=== PATIENT | male | born 1960 | race Asian ===

== ENCOUNTER → 2024-07-11 | Outpatient (CLI) | payer BC, MEDICARE, MEDICAID, SELFPAY ==
[2024-07-11 08:36] LABS: Basophils # (Auto) 0.1 Thou/mm3 (0.0-0.2); Basophils % (Auto) 0 % (0-2.5); Eosinophils # (Auto) 0.4 Thou/mm3 (0.0-0.5); Eosinophils % (Auto) 2 % (0-10); Hematocrit 28.8 % (41.0-53.0); Hemoglobin 8.9 g/dL (13.5-16.0); Immature Granulocytes % (Auto) 1 % (0-0); Immature Granulocytes Auto 0.16 Thou/mm3 (0.00-0.00); Lymphocytes % (Auto) 5 % (10-50); Mean Corpuscular HGB Conc 30.9 g/dl (31.0-37.0); Mean Corpuscular Hemoglobin 23.8 pg (25.0-35.0); Mean Corpuscular Volume 77 fL (80-100); Monocytes # (Auto) 1.5 Thou/mm3 (0.0-0.8); Monocytes % (Auto) 6 % (0-12); Neutrophils # (Auto) 19.9 Thou/mm3 (1.8-7.7); Neutrophils % (Auto) 87 % (37-80); Nucleated Red Blood Cell % 0 /100 WBC (0); Platelet Count 597 Thou/mm3 (140-440); RDW Standard Deviation 49.1 fL (35.1-43.9); Red Blood Count 3.74 Miln/mm3 (4.50-5.90)
[2024-07-11 09:10] LABS: Alanine Aminotransferase 13 U/L (10-49); Albumin, Serum 3.8 gm/dL (3.4-4.8); Albumin/Globulin Ratio 1.2 (1.2-2.2); Alkaline Phosphatase 201 U/L (46-116); Anion Gap 9 (7-16); Aspartate Amino Transferase 16 U/L (0-34); BUN/Creatinine Ratio 19 Ratio (12-20); Bilirubin,Total 0.4 mg/dL (0.3-1.2); Blood Urea Nitrogen 15 mg/dL (9-23); Calcium 11.4 mg/dL (8.3-10.6); Calcium (Corrected) 11.6 mg/dL (8.5-10.1); Carbon Dioxide 27.3 mMol/L (20.0-31.0); Chloride 99 mMol/L (98-107); Creatinine (Component) 0.8 mg/dL (0.6-1.3); Globulin 3.2 gm/dL (2.3-3.5); Glucose 143 mg/dL (74-106); LDH (Lactate Dehydrogenase) 185 U/L (120-246); Osmolality,Calculated 272 (275-295); Potassium 3.6 mMol/L (3.4-5.1); Sodium 135 mMol/L (136-145); eGFR > 60 See Note
== END | disposition home or self-care (01) ==
PROVIDERS: PCP Family Medicine; Referring Provider Internal Medicine Hematology & Oncology; Visit Provider Internal Medicine Hematology & Oncology
DX: C67.3 Malignant neoplasm of anterior wall of bladder (principal); M25.512 Pain in left shoulder
CPT/HCPCS: 36415; 80053; 83615; 85025

== ENCOUNTER 2024-07-28 07:39 | Outpatient (CLI) | payer BC, MEDICARE, MEDICAID, SELFPAY ==
[2024-07-26 15:49] VITALS: BMI 23.0
[2024-07-27 09:44] LABS: Basophils % (Auto) 0 % (0-2.5); Eosinophils # (Auto) 0.1 Thou/mm3 (0.0-0.5); Eosinophils % (Auto) 1 % (0-10); Hematocrit 31.1 % (41.0-53.0); Hemoglobin 8.9 g/dL (13.5-16.0); Immature Granulocytes % (Auto) 4 % (0-0); Immature Granulocytes Auto 0.47 Thou/mm3 (0.00-0.00); Lymphocytes # (Auto) 1.1 Thou/mm3 (1.0-4.8); Lymphocytes % (Auto) 9 % (10-50); Mean Corpuscular HGB Conc 28.6 g/dl (31.0-37.0); Mean Corpuscular Hemoglobin 23.4 pg (25.0-35.0); Mean Corpuscular Volume 82 fL (80-100); Monocytes % (Auto) 8 % (0-12); Neutrophils # (Auto) 9.7 Thou/mm3 (1.8-7.7); Neutrophils % (Auto) 78 % (37-80); Nucleated Red Blood Cell # 0.02 Thou/mm3 (0.00-0.00); Nucleated Red Blood Cell % 0 /100 WBC (0); Platelet Count 481 Thou/mm3 (140-440); RDW Standard Deviation 56.2 fL (35.1-43.9); Red Blood Count 3.81 Miln/mm3 (4.50-5.90); White Blood Count 12.4 Thou/mm3 (3.8-10.6)
[2024-07-27 09:52] LABS: Partial Thromboplastin Time 31.6 Seconds (22.0-36.0); Prothrombin Time 11.1 Seconds (9.0-12.2)
[2024-07-27 10:08] LABS: Blood Urea Nitrogen 15 mg/dL (9-23); Creatinine (Component) 0.9 mg/dL (0.6-1.3); Estimated Creatinine Clearance 68.5 mL/min (>60); eGFR > 60 See Note
[2024-07-28] VITALS (17 sets, daily range): BP systolic 126–176; BP diastolic 76–96; PULSE 85–107; RESP 13–24; TEMP 36.8–36.9; O2SAT 94–99
--- NOTE | 2024-07-28 09:00 | XR_ITS ---
Examination: IR venous implantation Port-A-Cath Ultrasound-guided needle placement right internal jugular vein. Fluoroscopy AP Chest, portable single view Exam date and time: July 28, 2024 0949 hours INDICATIONS: Diagnosis bladder cancer, need for long-term intravenous chemotherapy. Informed consent provided Technique: A timeout was completed, verifying correct patient, procedure, site, positioning, and special equipment if applicable The patient was placed in a dependent position appropriate for central line placement based on the vein to be cannulated. The patient's right neck was prepped and draped in sterile fashion. Maximum Sterile Barrier Technique used including cap, mask, sterile gown, sterile gloves, and sterile full body drape. If ultrasound technique used: sterile gel and sterile probe covers. Hand Hygiene performed using proper scrub, soap and water, or alcohol-based hand rub. Site right portable apparatus utilized to confirm patency of the right internal jugular vein Utilizing ultrasonographic guidance successful 21-gauge single puncture into the right internal jugular vein Ultrasound images were recorded and stored. Successful micropuncture with a 21-gauge needle was performed. 0.18 wire guide was introduced into the IVC under fluoroscopic guidance. Blunt dissection then utilized to form subcutaneous pocket in the upper anterior chest 20 cm 9 Thai Port-A-Cath line then connected to the Port-A-Cath reservoir in place to a venous sheath into the superior vena cava. Perfusion to the extremity distal to the point of catheter insertion was checked and found to be adequate The attending radiologist was present for the entire procedure Estimated blood loss3 cc. Findings: Under fluoroscopy, the tip of the Port-A-Cath is in good position in the vena cava. Portable chest x-ray, post Port-A-Cath placement, as ordered. Impression: Successful ultrasound-guided needle placement right internal jugular vein. Successful IR venous implantation Port-A-Cath Fluoroscopy 0.6 minutes radiation dose 2.07 milligray. One spot fluoroscopic film AP portable chest completion procedure demonstrates satisfactory position Port-A-Cath SVC. May use central line.
[2024-07-28] MEDS: ceFAZolin 1 GM in SODIUM CHLORIDE 0.9% 100 ML IV (10:20)
[2024-07-28] MEDS: fentaNYL CIT INJ 50 mCg/ML AMP 2ML IVP (11:00)
[2024-07-28] MEDS: ceFAZolin INJ 1 GM VIAL STFIELD (11:01)
[2024-07-28] MEDS: HEPARIN SOD LOCK SYR 100 UNIT/ML 500 UNIT STFIELD (11:01)
[2024-07-28] MEDS: LIDOCAINE INJ PF 1% 30 ML VIAL 10 ML INFL (11:01)
[2024-07-28] MEDS: LIDOCAINE 1% W/EPI 1:100K 20 ML VIAL 7 ML INFL (11:01)
--- NOTE | 2024-07-28 12:06 | PC.NURSE ---
Addendum entered by Sarah Bah RN 07/29/24 08:31: correction: 1129 patient is awake, alert, breathing unlabored. S/P port placement, dressign to right upper chest dry with no bleeding, patient in laboratory monitor bay 3 for 1hr recovery. (time correction) Original Note: 1229 patient is awake, alert, breathing unlabored. S/P port placement, dressign to right upper chest dry with no bleeding, patient in laboratory monitor bay 3 for 1hr recovery.
== END 2024-07-28 12:35 | disposition home or self-care (01) ==
PROVIDERS: Radiology Diagnostic Radiology; PCP Family Medicine; Referring Provider Internal Medicine Hematology & Oncology; Visit Provider Internal Medicine Hematology & Oncology
DX: C67.3 Malignant neoplasm of anterior wall of bladder (principal); Z01.812 Encounter for preprocedural laboratory examination
CPT/HCPCS: 36561; 36415; 76937; 77001; 82565; 84520; 85025; 85610; 85730; C1769; C1788; C1894; J0690; J1642; J3010; J3490; J7050

== ENCOUNTER → 2024-08-04 | Outpatient (CLI) | payer BC, MEDICARE, MEDICAID, SELFPAY ==
[2024-08-04 09:04] LABS: Basophils # (Auto) 0.1 Thou/mm3 (0.0-0.2); Basophils % (Auto) 1 % (0-2.5); Eosinophils # (Auto) 0.5 Thou/mm3 (0.0-0.5); Eosinophils % (Auto) 5 % (0-10); Hematocrit 31.2 % (41.0-53.0); Hemoglobin 9.2 g/dL (13.5-16.0); Immature Granulocytes % (Auto) 1 % (0-0); Immature Granulocytes Auto 0.05 Thou/mm3 (0.00-0.00); Lymphocytes # (Auto) 1.4 Thou/mm3 (1.0-4.8); Lymphocytes % (Auto) 14 % (10-50); Mean Corpuscular HGB Conc 29.5 g/dl (31.0-37.0); Mean Corpuscular Hemoglobin 23.7 pg (25.0-35.0); Mean Corpuscular Volume 80 fL (80-100); Monocytes # (Auto) 1.2 Thou/mm3 (0.0-0.8); Monocytes % (Auto) 11 % (0-12); Neutrophils # (Auto) 7.1 Thou/mm3 (1.8-7.7); Neutrophils % (Auto) 69 % (37-80); Nucleated Red Blood Cell % 0 /100 WBC (0); Platelet Count 496 Thou/mm3 (140-440); RDW Standard Deviation 62.7 fL (35.1-43.9); Red Blood Count 3.88 Miln/mm3 (4.50-5.90); White Blood Count 10.3 Thou/mm3 (3.8-10.6)
[2024-08-04 09:33] LABS: Alanine Aminotransferase 9 U/L (10-49); Albumin, Serum 4.4 gm/dL (3.4-4.8); Albumin/Globulin Ratio 1.4 (1.2-2.2); Alkaline Phosphatase 123 U/L (46-116); Anion Gap 8 (7-16); Aspartate Amino Transferase 13 U/L (0-34); BUN/Creatinine Ratio 23 Ratio (12-20); Bilirubin,Total 0.5 mg/dL (0.3-1.2); Blood Urea Nitrogen 23 mg/dL (9-23); Calcium 9.7 mg/dL (8.3-10.6); Calcium (Corrected) 9.7 mg/dL (8.5-10.1); Carbon Dioxide 22.8 mMol/L (20.0-31.0); Chloride 104 mMol/L (98-107); Globulin 3.1 gm/dL (2.3-3.5); Glucose 116 mg/dL (74-106); LDH (Lactate Dehydrogenase) 228 U/L (120-246); Osmolality,Calculated 274 (275-295); Potassium 4.7 mMol/L (3.4-5.1); Sodium 135 mMol/L (136-145); Thyroid Stimulating Hormone 1.36 uIU/mL (0.55-4.78); Total Protein 7.5 gm/dL (5.7-8.2); eGFR > 60 See Note
== END | disposition home or self-care (01) ==
PROVIDERS: PCP Family Medicine; Referring Provider Internal Medicine Hematology & Oncology; Visit Provider Internal Medicine Hematology & Oncology
DX: C67.3 Malignant neoplasm of anterior wall of bladder (principal); M25.512 Pain in left shoulder
CPT/HCPCS: 36415; 80053; 83615; 84443; 85025

== ENCOUNTER → 2024-08-08 | Outpatient (CLI) | payer BC, MEDICARE, MEDICAID, SELFPAY ==
--- NOTE | 2024-08-08 13:09 | XR_ITS ---
Examination: IR staple removal Port-A-Cath incision site Exam date and time: August 08, 2024 1309 hours INDICATIONS: Status post Port-A-Cath insertion July 28, 2024, returning for removal of stable closure devices TECHNIQUE AND FINDINGS: Informed consent provided Timeout performed. Skin prepped over the Port-A-Cath insertion site and sterile drape applied hand hygiene Successful removal of the mp at the Port-A-Cath incision site Estimated blood loss 0 cc IMPRESSION: Successful IR removal mp Port-A-Cath incision site
== END | disposition home or self-care (01) ==
LOC: SIRX 13:03
PROVIDERS: Referring Provider Radiology Diagnostic Radiology; Visit Provider Radiology Diagnostic Radiology
DX: Z48.02 Encounter for removal of sutures (principal)

== ENCOUNTER → 2024-08-10 | Outpatient (CLI) | payer MEDICARE, MEDICAID, SELFPAY ==
[2024-08-10 08:53] LABS: Basophils # (Auto) 0.1 Thou/mm3 (0.0-0.2); Basophils % (Auto) 1 % (0-2.5); Eosinophils # (Auto) 0.6 Thou/mm3 (0.0-0.5); Eosinophils % (Auto) 5 % (0-10); Hematocrit 34.4 % (41.0-53.0); Hemoglobin 10.2 g/dL (13.5-16.0); Immature Granulocytes % (Auto) 0 % (0-0); Immature Granulocytes Auto 0.05 Thou/mm3 (0.00-0.00); Lymphocytes # (Auto) 1.3 Thou/mm3 (1.0-4.8); Lymphocytes % (Auto) 11 % (10-50); Mean Corpuscular HGB Conc 29.7 g/dl (31.0-37.0); Mean Corpuscular Volume 81 fL (80-100); Monocytes # (Auto) 1.1 Thou/mm3 (0.0-0.8); Monocytes % (Auto) 10 % (0-12); Neutrophils # (Auto) 8.5 Thou/mm3 (1.8-7.7); Neutrophils % (Auto) 73 % (37-80); Nucleated Red Blood Cell % 0 /100 WBC (0); Platelet Count 425 Thou/mm3 (140-440); RDW Standard Deviation 64.3 fL (35.1-43.9); Red Blood Count 4.25 Miln/mm3 (4.50-5.90); White Blood Count 11.7 Thou/mm3 (3.8-10.6)
[2024-08-10 09:19] LABS: Alanine Aminotransferase < 7 U/L (10-49); Albumin, Serum 4.2 gm/dL (3.4-4.8); Albumin/Globulin Ratio 1.3 (1.2-2.2); Alkaline Phosphatase 119 U/L (46-116); Anion Gap 11 (7-16); Aspartate Amino Transferase 12 U/L (0-34); BUN/Creatinine Ratio 16 Ratio (12-20); Bilirubin,Total 0.3 mg/dL (0.3-1.2); Blood Urea Nitrogen 16 mg/dL (9-23); Calcium 9.8 mg/dL (8.3-10.6); Calcium (Corrected) 9.8 mg/dL (8.5-10.1); Carbon Dioxide 23.5 mMol/L (20.0-31.0); Chloride 102 mMol/L (98-107); Globulin 3.2 gm/dL (2.3-3.5); Glucose 133 mg/dL (74-106); LDH (Lactate Dehydrogenase) 210 U/L (120-246); Osmolality,Calculated 275 (275-295); Sodium 136 mMol/L (136-145); Total Protein 7.4 gm/dL (5.7-8.2); eGFR > 60 See Note
== END | disposition home or self-care (01) ==
LOC: COPL 07:51
PROVIDERS: PCP Family Medicine; Referring Provider Internal Medicine Hematology & Oncology; Visit Provider Internal Medicine Hematology & Oncology
DX: C67.3 Malignant neoplasm of anterior wall of bladder (principal); M25.512 Pain in left shoulder
CPT/HCPCS: 36415; 80053; 83615; 84443; 85025

== ENCOUNTER → 2024-08-22 | Outpatient (CLI) | payer MEDICARE, MEDICAID, SELFPAY ==
[2024-08-22 09:23] LABS: Basophils # (Auto) 0.1 Thou/mm3 (0.0-0.2); Basophils % (Auto) 1 % (0-2.5); Eosinophils # (Auto) 0.7 Thou/mm3 (0.0-0.5); Eosinophils % (Auto) 6 % (0-10); Hematocrit 35.6 % (41.0-53.0); Hemoglobin 10.6 g/dL (13.5-16.0); Immature Granulocytes % (Auto) 1 % (0-0); Immature Granulocytes Auto 0.08 Thou/mm3 (0.00-0.00); Lymphocytes # (Auto) 1.4 Thou/mm3 (1.0-4.8); Lymphocytes % (Auto) 11 % (10-50); Mean Corpuscular HGB Conc 29.8 g/dl (31.0-37.0); Mean Corpuscular Hemoglobin 24.7 pg (25.0-35.0); Mean Corpuscular Volume 83 fL (80-100); Monocytes # (Auto) 1.2 Thou/mm3 (0.0-0.8); Monocytes % (Auto) 9 % (0-12); Neutrophils # (Auto) 8.9 Thou/mm3 (1.8-7.7); Neutrophils % (Auto) 73 % (37-80); Nucleated Red Blood Cell % 0 /100 WBC (0); Platelet Count 464 Thou/mm3 (140-440); RDW Standard Deviation 61.3 fL (35.1-43.9); Red Blood Count 4.29 Miln/mm3 (4.50-5.90); White Blood Count 12.3 Thou/mm3 (3.8-10.6)
[2024-08-22 09:36] LABS: Alanine Aminotransferase 19 U/L (10-49); Albumin, Serum 4.4 gm/dL (3.4-4.8); Albumin/Globulin Ratio 1.4 (1.2-2.2); Alkaline Phosphatase 137 U/L (46-116); Anion Gap 11 (7-16); Aspartate Amino Transferase 18 U/L (0-34); BUN/Creatinine Ratio 22 Ratio (12-20); Bilirubin,Total 0.3 mg/dL (0.3-1.2); Blood Urea Nitrogen 20 mg/dL (9-23); Calcium 9.8 mg/dL (8.3-10.6); Calcium (Corrected) 9.8 mg/dL (8.5-10.1); Carbon Dioxide 24.7 mMol/L (20.0-31.0); Chloride 103 mMol/L (98-107); Creatinine (Component) 0.9 mg/dL (0.6-1.3); Globulin 3.2 gm/dL (2.3-3.5); Glucose 168 mg/dL (74-106); LDH (Lactate Dehydrogenase) 215 U/L (120-246); Osmolality,Calculated 284 (275-295); Potassium 4.2 mMol/L (3.4-5.1); Sodium 139 mMol/L (136-145); Thyroid Stimulating Hormone 1.15 uIU/mL (0.55-4.78); Total Protein 7.6 gm/dL (5.7-8.2); eGFR > 60 See Note
== END | disposition home or self-care (01) ==
LOC: COPL 08:14
PROVIDERS: PCP Family Medicine; Referring Provider Internal Medicine Hematology & Oncology; Visit Provider Internal Medicine Hematology & Oncology
DX: C67.3 Malignant neoplasm of anterior wall of bladder (principal); M25.512 Pain in left shoulder
CPT/HCPCS: 36415; 80053; 83615; 84443; 85025

== ENCOUNTER → 2024-09-07 | Outpatient (CLI) | payer MEDICARE, MEDICAID, SELFPAY ==
[2024-09-07 09:47] LABS: Basophils # (Auto) 0.1 Thou/mm3 (0.0-0.2); Basophils % (Auto) 1 % (0-2.5); Eosinophils # (Auto) 0.6 Thou/mm3 (0.0-0.5); Eosinophils % (Auto) 4 % (0-10); Hematocrit 32.9 % (41.0-53.0); Hemoglobin 10.4 g/dL (13.5-16.0); Immature Granulocytes % (Auto) 0 % (0-0); Immature Granulocytes Auto 0.05 Thou/mm3 (0.00-0.00); Lymphocytes # (Auto) 1.2 Thou/mm3 (1.0-4.8); Lymphocytes % (Auto) 8 % (10-50); Mean Corpuscular HGB Conc 31.6 g/dl (31.0-37.0); Mean Corpuscular Hemoglobin 24.8 pg (25.0-35.0); Mean Corpuscular Volume 78 fL (80-100); Monocytes # (Auto) 1.2 Thou/mm3 (0.0-0.8); Monocytes % (Auto) 8 % (0-12); Neutrophils # (Auto) 11.9 Thou/mm3 (1.8-7.7); Neutrophils % (Auto) 79 % (37-80); Nucleated Red Blood Cell % 0 /100 WBC (0); Platelet Count 407 Thou/mm3 (140-440); RDW Standard Deviation 50.8 fL (35.1-43.9); White Blood Count 15.1 Thou/mm3 (3.8-10.6)
[2024-09-07 09:48] LABS: Glucose Estimated Average 114 mg/dL (80-131); Hemoglobin A1C 5.6 % Hgb (4.8-6.0)
[2024-09-07 09:58] LABS: Alanine Aminotransferase 29 U/L (10-49); Albumin, Serum 4.2 gm/dL (3.4-4.8); Albumin/Globulin Ratio 1.3 (1.2-2.2); Alkaline Phosphatase 180 U/L (46-116); Anion Gap 11 (7-16); Aspartate Amino Transferase 36 U/L (0-34); BUN/Creatinine Ratio 21 Ratio (12-20); Bilirubin,Total 0.5 mg/dL (0.3-1.2); Blood Urea Nitrogen 15 mg/dL (9-23); Calcium 9.6 mg/dL (8.3-10.6); Calcium (Corrected) 9.6 mg/dL (8.5-10.1); Carbon Dioxide 25.5 mMol/L (20.0-31.0); Chloride 96 mMol/L (98-107); Creatinine (Component) 0.7 mg/dL (0.6-1.3); Globulin 3.2 gm/dL (2.3-3.5); Glucose 167 mg/dL (74-106); LDH (Lactate Dehydrogenase) 241 U/L (120-246); Osmolality,Calculated 269 (275-295); Sodium 132 mMol/L (136-145); Thyroid Stimulating Hormone 1.17 uIU/mL (0.55-4.78); Total Protein 7.4 gm/dL (5.7-8.2); eGFR > 60 See Note
== END | disposition home or self-care (01) ==
LOC: COPL 08:07
PROVIDERS: PCP Family Medicine; Referring Provider Family Medicine; Visit Provider Internal Medicine Hematology & Oncology
DX: C67.3 Malignant neoplasm of anterior wall of bladder (principal); M25.512 Pain in left shoulder; E11.65 Type 2 diabetes mellitus with hyperglycemia
CPT/HCPCS: 36415; 80053; 83036; 83615; 84443; 85025

== ENCOUNTER 2024-09-08 08:28 | Outpatient (RCR) | payer MEDICARE, MEDICAID, SELFPAY ==
--- NOTE | 2024-09-08 09:53 | CTCFLWUP_ITS ---
[facility] [address] [place], [place] [address] FOLLOW-UP NOTE Date: 09/08/2024 MR#: [id number] Name: JANUARY ARELLANO : 1960 Dx: C67.3 Malignant neoplasm of anterior wall of bladder Identification. Patient with bladder CA with lung mets had palliative radiation therapy due to heavy bleeding Completed in April 2024. Currently getting chemo with Dr. Sha Chi in [place]. Patient is having dysuria unrelieved by Flomax and Tylenol. Elected to place patient on Pyridium 200 mg 3 times daily for 10 days. Told to call me regarding any refills needed. In the meantime I gave him follow-up for 3 months. Electronically signed by: Jair Gonzales M.D. 09/08/2024 9:50 AM
== END 2024-09-23 23:59 | disposition home or self-care (01) ==
LOC: SCTC 08:28
PROVIDERS: PCP Family Medicine; Referring Provider Family Medicine; Visit Provider Radiology Therapeutic Radiology
DX: C67.9 Malignant neoplasm of bladder, unspecified (principal); C78.00 Secondary malignant neoplasm of unspecified lung
CPT/HCPCS: 99213; G0463

== ENCOUNTER → 2024-09-21 | Outpatient (CLI) | payer MEDICARE, MEDICAID, SELFPAY ==
[2024-09-21 15:33] LABS: Collection Type, Urine Clean Catch; Squamous Epithelial Cell,Urine 0 /hpf (0-5)
[2024-09-21 17:09] LABS: Bacteria,Urine 3+; Bilirubin,Urine 2+ (Negative); Blood,Urine Negative (Negative); Clarity,Urine Clear (Clear/Hazy); Color,Urine Drk-Orange (Lt Yel-Yel); Glucose, Urine 3+ (Negative); Ketones,Urine Negative (Negative); Leukocyte Esterase,Urine Negative (Negative); Nitrite,Urine Positive (Negative); PH,Urine 6.5 (5.0-7.0); Protein,Urine 1+ (Neg - Trace); RBC,Urine 10 /hpf (0-3); Specific Gravity,Urine 1.024 (1.001-1.035); WBC,Urine 36 /hpf (0-5)
== END | disposition home or self-care (01) ==
LOC: SLDO 14:57
PROVIDERS: Referring Provider Internal Medicine; Visit Provider Internal Medicine
DX: N30.00 Acute cystitis without hematuria (principal)
CPT/HCPCS: 81001; 87077; 87086; 87186

== ENCOUNTER → 2024-09-26 | Outpatient (CLI) | payer MEDICARE, MEDICAID, SELFPAY ==
[2024-09-26 09:01] LABS: Basophils # (Auto) 0.1 Thou/mm3 (0.0-0.2); Basophils % (Auto) 0 % (0-2.5); Eosinophils # (Auto) 0.5 Thou/mm3 (0.0-0.5); Eosinophils % (Auto) 2 % (0-10); Hematocrit 32.4 % (41.0-53.0); Hemoglobin 9.6 g/dL (13.5-16.0); Immature Granulocytes % (Auto) 1 % (0-0); Immature Granulocytes Auto 0.13 Thou/mm3 (0.00-0.00); Lymphocytes # (Auto) 1.2 Thou/mm3 (1.0-4.8); Lymphocytes % (Auto) 6 % (10-50); Mean Corpuscular HGB Conc 29.6 g/dl (31.0-37.0); Mean Corpuscular Hemoglobin 24.2 pg (25.0-35.0); Mean Corpuscular Volume 82 fL (80-100); Monocytes # (Auto) 1.6 Thou/mm3 (0.0-0.8); Monocytes % (Auto) 8 % (0-12); Neutrophils # (Auto) 16.7 Thou/mm3 (1.8-7.7); Neutrophils % (Auto) 83 % (37-80); Nucleated Red Blood Cell % 0 /100 WBC (0); Platelet Count 510 Thou/mm3 (140-440); RDW Standard Deviation 52.7 fL (35.1-43.9); Red Blood Count 3.97 Miln/mm3 (4.50-5.90); White Blood Count 20.1 Thou/mm3 (3.8-10.6)
[2024-09-26 09:15] LABS: Alanine Aminotransferase < 7 U/L (10-49); Albumin, Serum 3.7 gm/dL (3.4-4.8); Albumin/Globulin Ratio 1.1 (1.2-2.2); Alkaline Phosphatase 129 U/L (46-116); Anion Gap 8 (7-16); Aspartate Amino Transferase 10 U/L (0-34); BUN/Creatinine Ratio 20 Ratio (12-20); Bilirubin,Total 0.3 mg/dL (0.3-1.2); Blood Urea Nitrogen 16 mg/dL (9-23); Calcium 10.1 mg/dL (8.3-10.6); Calcium (Corrected) 10.3 mg/dL (8.5-10.1); Carbon Dioxide 27.7 mMol/L (20.0-31.0); Chloride 98 mMol/L (98-107); Creatinine (Component) 0.8 mg/dL (0.6-1.3); Globulin 3.5 gm/dL (2.3-3.5); Glucose 125 mg/dL (74-106); LDH (Lactate Dehydrogenase) 195 U/L (120-246); Osmolality,Calculated 270 (275-295); Potassium 4.4 mMol/L (3.4-5.1); Sodium 134 mMol/L (136-145); Total Protein 7.2 gm/dL (5.7-8.2); eGFR > 60 See Note
== END | disposition home or self-care (01) ==
PROVIDERS: PCP Family Medicine; Referring Provider Internal Medicine Hematology & Oncology; Visit Provider Internal Medicine Hematology & Oncology
DX: C67.3 Malignant neoplasm of anterior wall of bladder (principal); M25.512 Pain in left shoulder
CPT/HCPCS: 36415; 80053; 83615; 84443; 85025

== ENCOUNTER → 2024-09-28 | Outpatient (CLI) | payer MEDICARE, MEDICAID, SELFPAY ==
--- NOTE | 2024-09-28 10:00 | XR_ITS ---
Examination: CT chest with intravenous contrast CT abdomen with intravenous contrast CT pelvis with intravenous contrast 2-D coronal and sagittal reconstructions Time of exam: September 28, 2024 1023 hours Comparison June 09, 2024 INDICATIONS: Bladder carcinoma diagnosis one year ago, upper and lower back pain beginning October 2023 pelvic pain beginning October 2023, restaging CTDI: vol (mGy) : 10.4 DLP: (mGycm): 422 Technique: Multiple axial images of the chest, abdomen and pelvis with intravenous contrast, 3.0 mm slice thickness. Images obtained post intravenous injection Isovue 370 60 cc. 2-D sagittal and coronal reconstructions. Low dose protocols were performed. One or more of the following dose reduction techniques were used; automated exposure control, adjustment of the mA and/or KV according to patient size, use of iterative reconstruction technique. Findings: No thoracic aortic aneurysmal dilatation Pulmonary artery segments are not enlarged No paratracheal tracheobronchial or bronchopulmonary adenopathy Enlarging pulmonary nodule in the right upper lobe, currently measuring 7 mm compared to 3 mm on the prior study No pneumonia or pulmonary edema No interval liver or splenic lesions Mildly distended gallbladder No pancreatic mass 16mm right adrenal nodule No hydronephrosis Moderate bilateral renal parenchymal scar formation No interval abdominal or pelvic lymphadenopathy No pericecal inflammatory change Interval prominent left external iliac lymphadenopathy, 3.6 cm Significant progression of bladder abnormality, irregular enhancing mass anterior bladder measuring up to 29 mm Severe osteopenia IMPRESSION: Enlarging likely metastatic pulmonary nodules in the right upper lobe, currently measuring 7 mm compared to 3 mm on the prior study 16mm right adrenal nodule, likely metastatic adrenal mass, consider MRI abdomen adrenal glands follow-up pre and postcontrast Interval prominent metastatic left external iliac lymphadenopathy 3.6 cm Interval significant progression of bladder tumor
== END | disposition home or self-care (01) ==
PROVIDERS: PCP Internal Medicine Hematology & Oncology; Referring Provider Internal Medicine Hematology & Oncology; Visit Provider Internal Medicine Hematology & Oncology
DX: N32.89 Other specified disorders of bladder (principal); R59.0 Localized enlarged lymph nodes; E27.8 Other specified disorders of adrenal gland; C67.3 Malignant neoplasm of anterior wall of bladder; C78.00 Secondary malignant neoplasm of unspecified lung
CPT/HCPCS: 71260; 74177; A4649; Q9967

== ENCOUNTER → 2024-10-05 | Outpatient (CLI) | payer MEDICARE, MEDICAID, SELFPAY ==
[2024-10-05 09:24] LABS: Basophils # (Auto) 0.2 Thou/mm3 (0.0-0.2); Basophils % (Auto) 0 % (0-2.5); Eosinophils # (Auto) 0.8 Thou/mm3 (0.0-0.5); Eosinophils % (Auto) 2 % (0-10); Hematocrit 34.1 % (41.0-53.0); Hemoglobin 10.4 g/dL (13.5-16.0); Immature Granulocytes % (Auto) 1 % (0-0); Immature Granulocytes Auto 0.27 Thou/mm3 (0.00-0.00); Lymphocytes # (Auto) 1.8 Thou/mm3 (1.0-4.8); Lymphocytes % (Auto) 5 % (10-50); Mean Corpuscular HGB Conc 30.5 g/dl (31.0-37.0); Mean Corpuscular Hemoglobin 23.9 pg (25.0-35.0); Mean Corpuscular Volume 78 fL (80-100); Monocytes # (Auto) 2.9 Thou/mm3 (0.0-0.8); Monocytes % (Auto) 9 % (0-12); Neutrophils # (Auto) 27.7 Thou/mm3 (1.8-7.7); Neutrophils % (Auto) 83 % (37-80); Nucleated Red Blood Cell % 0 /100 WBC (0); Platelet Count 587 Thou/mm3 (140-440); RDW Standard Deviation 49.5 fL (35.1-43.9); Red Blood Count 4.36 Miln/mm3 (4.50-5.90); White Blood Count 33.6 Thou/mm3 (3.8-10.6)
[2024-10-05 09:46] LABS: Alanine Aminotransferase 12 U/L (10-49); Albumin, Serum 3.5 gm/dL (3.4-4.8); Albumin/Globulin Ratio 1.1 (1.2-2.2); Alkaline Phosphatase 178 U/L (46-116); Anion Gap 6 (7-16); Aspartate Amino Transferase 17 U/L (0-34); BUN/Creatinine Ratio 21 Ratio (12-20); Bilirubin,Total 0.5 mg/dL (0.3-1.2); Blood Urea Nitrogen 19 mg/dL (9-23); Calcium 12.4 mg/dL (8.3-10.6); Calcium (Corrected) 12.8 mg/dL (8.5-10.1); Carbon Dioxide 27.9 mMol/L (20.0-31.0); Chloride 95 mMol/L (98-107); Creatinine (Component) 0.9 mg/dL (0.6-1.3); Globulin 3.3 gm/dL (2.3-3.5); Glucose 115 mg/dL (74-106); LDH (Lactate Dehydrogenase) 221 U/L (120-246); Osmolality,Calculated 262 (275-295); Potassium 4.4 mMol/L (3.4-5.1); Sodium 129 mMol/L (136-145); Thyroid Stimulating Hormone 0.81 uIU/mL (0.55-4.78); Total Protein 6.8 gm/dL (5.7-8.2); eGFR > 60 See Note
== END | disposition home or self-care (01) ==
LOC: COPL 08:10
PROVIDERS: PCP Family Medicine; Referring Provider Internal Medicine Hematology & Oncology; Visit Provider Internal Medicine Hematology & Oncology
DX: C67.3 Malignant neoplasm of anterior wall of bladder (principal); M25.512 Pain in left shoulder
CPT/HCPCS: 36415; 80053; 83615; 84443; 85025

== ENCOUNTER → 2024-10-12 | Outpatient (CLI) | payer MEDICARE, MEDICAID, SELFPAY ==
[2024-10-12 09:30] LABS: Basophils # (Auto) 0.1 Thou/mm3 (0.0-0.2); Basophils % (Auto) 0 % (0-2.5); Eosinophils # (Auto) 0.7 Thou/mm3 (0.0-0.5); Eosinophils % (Auto) 2 % (0-10); Hematocrit 31.6 % (41.0-53.0); Immature Granulocytes % (Auto) 1 % (0-0); Lymphocytes # (Auto) 1.6 Thou/mm3 (1.0-4.8); Lymphocytes % (Auto) 4 % (10-50); Mean Corpuscular HGB Conc 31.6 g/dl (31.0-37.0); Mean Corpuscular Hemoglobin 23.8 pg (25.0-35.0); Mean Corpuscular Volume 75 fL (80-100); Monocytes # (Auto) 2.9 Thou/mm3 (0.0-0.8); Monocytes % (Auto) 8 % (0-12); Neutrophils % (Auto) 84 % (37-80); Nucleated Red Blood Cell % 0 /100 WBC (0); Platelet Count 308 Thou/mm3 (140-440); RDW Standard Deviation 48.8 fL (35.1-43.9)
[2024-10-12 10:03] LABS: Alanine Aminotransferase 30 U/L (10-49); Albumin, Serum 3.2 gm/dL (3.4-4.8); Albumin/Globulin Ratio 0.9 (1.2-2.2); Alkaline Phosphatase 259 U/L (46-116); Anion Gap 13 (7-16); Aspartate Amino Transferase 35 U/L (0-34); BUN/Creatinine Ratio 21 Ratio (12-20); Bilirubin,Total 0.9 mg/dL (0.3-1.2); Blood Urea Nitrogen 17 mg/dL (9-23); Calcium 10.9 mg/dL (8.3-10.6); Calcium (Corrected) 11.5 mg/dL (8.5-10.1); Carbon Dioxide 24.8 mMol/L (20.0-31.0); Chloride 90 mMol/L (98-107); Creatinine (Component) 0.8 mg/dL (0.6-1.3); Globulin 3.4 gm/dL (2.3-3.5); Glucose 103 mg/dL (74-106); LDH (Lactate Dehydrogenase) 292 U/L (120-246); Osmolality,Calculated 258 (275-295); Potassium 3.8 mMol/L (3.4-5.1); Sodium 128 mMol/L (136-145); Thyroid Stimulating Hormone 0.75 uIU/mL (0.55-4.78); Total Protein 6.6 gm/dL (5.7-8.2); eGFR > 60 See Note
[2024-10-12 10:15] LABS: White Blood Count 36.8 Thou/mm3 (3.8-10.6)
[2024-10-12 10:18] LABS: Path Review Blood Smear Sent to Pathologist
== END | disposition home or self-care (01) ==
LOC: COPL 08:10
PROVIDERS: PCP Family Medicine; Referring Provider Internal Medicine Hematology & Oncology; Visit Provider Internal Medicine Hematology & Oncology
DX: C67.3 Malignant neoplasm of anterior wall of bladder (principal); M25.512 Pain in left shoulder
CPT/HCPCS: 36415; 80053; 83615; 84443; 85025

== ENCOUNTER → 2024-10-25 | Outpatient (BNVA) | payer MEDICARE, MEDICAID, SELFPAY | END | disposition home or self-care (01) | PROVIDERS: PCP Family Medicine; Referring Provider Family Medicine; Visit Provider Urology | DX: C67.9 Malignant neoplasm of bladder, unspecified (principal); N40.1 Benign prostatic hyperplasia with lower urinary tract symptoms; N13.8 Other obstructive and reflux uropathy; Z90.6 Acquired absence of other parts of urinary tract; I10 Essential (primary) hypertension; E11.9 Type 2 diabetes mellitus without complications; I25.10 Atherosclerotic heart disease of native coronary artery without angina pectoris; I25.2 Old myocardial infarction | CPT/HCPCS: 99212; G0463 ==

== ENCOUNTER → 2024-10-26 | Outpatient (CLI) | payer MEDICARE, MEDICAID, SELFPAY ==
[2024-10-26 09:30] LABS: Basophils # (Auto) 0.1 Thou/mm3 (0.0-0.2); Basophils % (Auto) 0 % (0-2.5); Eosinophils # (Auto) 0.1 Thou/mm3 (0.0-0.5); Eosinophils % (Auto) 0 % (0-10); Hematocrit 29.3 % (41.0-53.0); Immature Granulocytes % (Auto) 1 % (0-0); Immature Granulocytes Auto 0.16 Thou/mm3 (0.00-0.00); Lymphocytes # (Auto) 1.2 Thou/mm3 (1.0-4.8); Lymphocytes % (Auto) 7 % (10-50); Mean Corpuscular HGB Conc 30.7 g/dl (31.0-37.0); Mean Corpuscular Hemoglobin 23.1 pg (25.0-35.0); Mean Corpuscular Volume 75 fL (80-100); Monocytes # (Auto) 1.8 Thou/mm3 (0.0-0.8); Monocytes % (Auto) 10 % (0-12); Neutrophils # (Auto) 14.4 Thou/mm3 (1.8-7.7); Neutrophils % (Auto) 82 % (37-80); Nucleated Red Blood Cell % 0 /100 WBC (0); Platelet Count 410 Thou/mm3 (140-440); RDW Standard Deviation 50.8 fL (35.1-43.9); White Blood Count 17.6 Thou/mm3 (3.8-10.6)
[2024-10-26 10:17] LABS: Alanine Aminotransferase 12 U/L (10-49); Albumin, Serum 3.2 gm/dL (3.4-4.8); Albumin/Globulin Ratio 1.1 (1.2-2.2); Alkaline Phosphatase 155 U/L (46-116); Anion Gap 11 (7-16); Aspartate Amino Transferase 12 U/L (0-34); BUN/Creatinine Ratio 11 Ratio (12-20); Bilirubin,Total 0.6 mg/dL (0.3-1.2); Blood Urea Nitrogen 9 mg/dL (9-23); Calcium 9.2 mg/dL (8.3-10.6); Calcium (Corrected) 9.8 mg/dL (8.5-10.1); Carbon Dioxide 24.1 mMol/L (20.0-31.0); Chloride 100 mMol/L (98-107); Creatinine (Component) 0.8 mg/dL (0.6-1.3); Globulin 2.8 gm/dL (2.3-3.5); Glucose 146 mg/dL (74-106); LDH (Lactate Dehydrogenase) 244 U/L (120-246); Osmolality,Calculated 271 (275-295); Potassium 4.1 mMol/L (3.4-5.1); Sodium 135 mMol/L (136-145); Thyroid Stimulating Hormone 1.24 uIU/mL (0.55-4.78); eGFR > 60 See Note
== END | disposition home or self-care (01) ==
LOC: COPL 08:01
PROVIDERS: PCP Family Medicine; Referring Provider Internal Medicine Hematology & Oncology; Visit Provider Internal Medicine Hematology & Oncology
DX: C67.3 Malignant neoplasm of anterior wall of bladder (principal); M25.512 Pain in left shoulder
CPT/HCPCS: 36415; 80053; 83615; 84443; 85025

== ENCOUNTER → 2024-11-02 | Outpatient (CLI) | payer MEDICARE, MEDICAID, SELFPAY ==
[2024-11-02 08:32] LABS: Basophils # (Auto) 0.1 Thou/mm3 (0.0-0.2); Basophils % (Auto) 0 % (0-2.5); Eosinophils # (Auto) 0.1 Thou/mm3 (0.0-0.5); Eosinophils % (Auto) 0 % (0-10); Hematocrit 30.4 % (41.0-53.0); Immature Granulocytes % (Auto) 1 % (0-0); Immature Granulocytes Auto 0.19 Thou/mm3 (0.00-0.00); Lymphocytes # (Auto) 0.9 Thou/mm3 (1.0-4.8); Lymphocytes % (Auto) 4 % (10-50); Mean Corpuscular HGB Conc 29.6 g/dl (31.0-37.0); Mean Corpuscular Hemoglobin 22.8 pg (25.0-35.0); Mean Corpuscular Volume 77 fL (80-100); Monocytes % (Auto) 8 % (0-12); Neutrophils # (Auto) 21.1 Thou/mm3 (1.8-7.7); Neutrophils % (Auto) 87 % (37-80); Nucleated Red Blood Cell % 0 /100 WBC (0); Platelet Count 402 Thou/mm3 (140-440); RDW Standard Deviation 51.8 fL (35.1-43.9); Red Blood Count 3.94 Miln/mm3 (4.50-5.90); White Blood Count 24.3 Thou/mm3 (3.8-10.6)
[2024-11-02 09:06] LABS: Alanine Aminotransferase < 7 U/L (10-49); Albumin, Serum 3.2 gm/dL (3.4-4.8); Alkaline Phosphatase 117 U/L (46-116); Anion Gap 7 (7-16); Aspartate Amino Transferase 14 U/L (0-34); BUN/Creatinine Ratio 13 Ratio (12-20); Bilirubin,Total 0.7 mg/dL (0.3-1.2); Blood Urea Nitrogen 12 mg/dL (9-23); Calcium 10.3 mg/dL (8.3-10.6); Calcium (Corrected) 10.9 mg/dL (8.5-10.1); Carbon Dioxide 26.6 mMol/L (20.0-31.0); Chloride 99 mMol/L (98-107); Creatinine (Component) 0.9 mg/dL (0.6-1.3); Globulin 3.1 gm/dL (2.3-3.5); Glucose 130 mg/dL (74-106); LDH (Lactate Dehydrogenase) 214 U/L (120-246); Osmolality,Calculated 268 (275-295); Potassium 4.1 mMol/L (3.4-5.1); Sodium 133 mMol/L (136-145); Thyroid Stimulating Hormone 1.64 uIU/mL (0.55-4.78); Total Protein 6.3 gm/dL (5.7-8.2); eGFR > 60 See Note
== END | disposition home or self-care (01) ==
PROVIDERS: PCP Family Medicine; Referring Provider Internal Medicine Hematology & Oncology; Visit Provider Internal Medicine Hematology & Oncology
DX: C67.3 Malignant neoplasm of anterior wall of bladder (principal); M25.512 Pain in left shoulder
CPT/HCPCS: 36415; 80053; 83615; 84443; 85025

== ENCOUNTER → 2024-11-16 | Outpatient (CLI) | payer MEDICARE, MEDICAID, SELFPAY ==
[2024-11-16 09:55] LABS: Basophils # (Auto) 0.1 Thou/mm3 (0.0-0.2); Basophils % (Auto) 0 % (0-2.5); Eosinophils # (Auto) 0.1 Thou/mm3 (0.0-0.5); Eosinophils % (Auto) 0 % (0-10); Hematocrit 29.2 % (41.0-53.0); Immature Granulocytes % (Auto) 1 % (0-0); Immature Granulocytes Auto 0.39 Thou/mm3 (0.00-0.00); Lymphocytes # (Auto) 1.5 Thou/mm3 (1.0-4.8); Lymphocytes % (Auto) 5 % (10-50); Mean Corpuscular HGB Conc 29.8 g/dl (31.0-37.0); Mean Corpuscular Hemoglobin 23.1 pg (25.0-35.0); Mean Corpuscular Volume 78 fL (80-100); Monocytes # (Auto) 2.1 Thou/mm3 (0.0-0.8); Monocytes % (Auto) 6 % (0-12); Neutrophils # (Auto) 29.4 Thou/mm3 (1.8-7.7); Neutrophils % (Auto) 87 % (37-80); Nucleated Red Blood Cell % 0 /100 WBC (0); Platelet Count 353 Thou/mm3 (140-440); RDW Standard Deviation 59.7 fL (35.1-43.9); Red Blood Count 3.77 Miln/mm3 (4.50-5.90); White Blood Count 33.6 Thou/mm3 (3.8-10.6)
[2024-11-16 10:25] LABS: Hemoglobin 8.7 g/dL (13.5-16.0)
[2024-11-16 10:27] LABS: Alanine Aminotransferase < 7 U/L (10-49); Albumin, Serum 3.4 gm/dL (3.4-4.8); Albumin/Globulin Ratio 1.1 (1.2-2.2); Alkaline Phosphatase 118 U/L (46-116); Anion Gap 10 (7-16); Aspartate Amino Transferase 18 U/L (0-34); BUN/Creatinine Ratio 21 Ratio (12-20); Bilirubin,Total 0.7 mg/dL (0.3-1.2); Blood Urea Nitrogen 17 mg/dL (9-23); Carbon Dioxide 28.4 mMol/L (20.0-31.0); Chloride 94 mMol/L (98-107); Creatinine (Component) 0.8 mg/dL (0.6-1.3); Globulin 3.2 gm/dL (2.3-3.5); Glucose 97 mg/dL (74-106); Osmolality,Calculated 266 (275-295); Potassium 4.6 mMol/L (3.4-5.1); Sodium 132 mMol/L (136-145); Thyroid Stimulating Hormone 1.51 uIU/mL (0.55-4.78); Total Protein 6.6 gm/dL (5.7-8.2); eGFR > 60 See Note
[2024-11-16 10:30] LABS: Calcium 14.5 mg/dL (8.3-10.6)
[2024-11-16 10:43] LABS: LDH (Lactate Dehydrogenase) 345 U/L (120-246)
== END | disposition home or self-care (01) ==
LOC: COPL 08:22
PROVIDERS: PCP Family Medicine; Referring Provider Internal Medicine Hematology & Oncology; Visit Provider Internal Medicine Hematology & Oncology
DX: C67.3 Malignant neoplasm of anterior wall of bladder (principal); M25.512 Pain in left shoulder
CPT/HCPCS: 36415; 80053; 83615; 84443; 85025

== ENCOUNTER 2024-11-19 05:27 | Emergency (ER) | payer MEDICARE, MEDICAID, SELFPAY ==
[2024-11-19 05:28] VITALS: BMI 16.5
[2024-11-19 05:36] VITALS: BP 138/81; PULSE 93; RESP 20; TEMP 36.7; O2SAT 96
--- NOTE | 2024-11-19 05:44 | PD.EDRME ---
Rapid Medical Screening Exam [facility] Arrival date/time: 11/19/24 05:27 64M with HTN, BPH, CHF, DM, cardiac arrest, and bladder cancer presents to ED with 1 day urinary retention. Patient saw Dr. Solis earlier this month and they discussed putting in a suprapubic catheter. Patient is still deciding if he wants to do that. Patient is okay with putting in a Hardin catheter today. Chief Complaint: Urogenital-Male Vital signs: Vital Signs Temperature 98.1 F 11/19/24 05:36 Pulse Rate 93 11/19/24 05:36 Respiratory Rate 20 11/19/24 05:36 Blood Pressure 138/81 H 11/19/24 05:36 Pulse Oximetry (%) 96 11/19/24 05:36 Oxygen Delivery Method Room Air 11/19/24 05:36
[2024-11-19] MEDS: LIDOCAINE JELLY 2% (Urojet) 10 ML TUBE TOP (07:45)
[2024-11-19 07:50] LABS: Collection Type, Urine Catheter; Squamous Epithelial Cell,Urine 0 /hpf (0-5)
[2024-11-19 08:02] LABS: Bilirubin,Urine Negative (Negative); Blood,Urine 2+ (Negative); Clarity,Urine Turbid (Clear/Hazy); Color,Urine Drk-Yellow (Lt Yel-Yel); Glucose, Urine Negative (Negative); Hyaline Casts,Urine < 1 /hpf (0-1); Ketones,Urine Negative (Negative); Leukocyte Esterase,Urine Positive (Negative); Nitrite,Urine Negative (Negative); Protein,Urine 1+ (Neg - Trace); RBC,Urine 202 /hpf (0-3); Specific Gravity,Urine 1.015 (1.001-1.035); Urobilinogen,Urine Negative mg/dL (0.0-1.0); WBC,Urine 35 /hpf (0-5)
--- NOTE | 2024-11-19 08:02 | XR_ITS ---
Examination: CT abdomen and pelvis without contrast. Coronal 3-D reconstructions. Sagittal 2-D reconstructions. Date and time of exam:November 19, 2024 0822 hrs. Indications: Generalized abdominal pain and hematuria today, bladder cancer diagnosis one year ago Comparison: September 28, 2024 CTDI: vol (mGy): 3.55 DLP: (mGycm): 166 Technique: Axial images of the abdomen have been obtained, 3 mm slice thickness Intravenous contrast material has not been administered. Low dose protocols were performed. One or more of the following dose reduction techniques were used; automated exposure control, adjustment of the mA and/or KV according to patient size, use of iterative reconstruction technique. Findings: Patient motion in the upper abdomen No focal liver or splenic lesions Contracted gallbladder Mild hydronephrosis with 2 mm right renal calculus Abdominal aortic calcification, no aneurysm dilatation No bowel obstruction Progression of bulky left external iliac left internal iliac metastatic lymphadenopathy There remains right adrenal likely metastatic nodule 15 mm Markedly abnormal urinary bladder, severe wall thickening, contracted around a Hardin catheter Stable osseous structures Impression: Mild bilateral hydronephrosis Significant progression of metastatic left pelvic lymphadenopathy Markedly abnormal urinary bladder, gross bladder wall thickening consistent with the patient's diagnosis of bladder cancer with probable blood clot in the urinary bladder Hardin catheter is present in the urinary bladder in satisfactory position
--- NOTE | 2024-11-19 08:05 | EDNOTE_ITS ---
<Statement entered by Mary Cooley MD - 11/19/24 17:35> As co-signing physician, I was present and available for consult prn. I concur with the plan and care as documented by the midlevel provider. ED General RME/HPI General Chief complaint: Urogenital-Male Stated complaint: PAIN AND UNABLE TO URINATE Time Seen by Provider: 11/19/24 05:59 Arrival date/time: 11/19/24 05:27 CC: Urinary retention HPI patient comes in for urinary retention. Coud? catheter inserted, bloody urine was drained. The patient is in a high amount of pain. When interviewed the patient states he had last Hardin catheter was in December. The patient acknowledges that he cannot have surgery from his enlarged prostate secondary to his cardiac history which includes cardiac arrest. Patient states that he is being considered for suprapubic catheter. RME / HPI RME / HPI narrative: 11/19/24 05:27 64M with HTN, BPH, CHF, DM, cardiac arrest, and bladder cancer presents to ED with 1 day urinary retention. Patient saw Dr. Solis earlier this month and they discussed putting in a suprapubic catheter. Patient is still deciding if he wants to do that. Patient is okay with putting in a Hardin catheter today. Related Data Home Medications ?Medication ?Instructions ?Recorded ?Confirmed carvedilol 12.5 mg tablet (Coreg) 12.5 mg PO BID 12/0410/25/24 rosuvastatin 20 mg tablet 20 mg PO QDAY 01/11/2410/25 aspirin 325 mg tablet 325 mg PO QDAY 07/28/2412/16 Held on 07/28/24. Instructions: Resume on 07/30/24. resume aspirin on thursday empagliflozin 25 mg tablet 25 mg PO QAM 07/28/2410/25 (Jardiance) ezetimibe 10 mg tablet 10 mg PO QDAY 07/28/2410/25 fentanyl 25 mcg/hr transdermal 25 mcg topical Q72H 01/1410/25/24 patch sacubitril 24 mg-valsartan 26 mg 1 tab PO BID 07/28/24 10/25/24 tablet (Entresto) tamsulosin 0.4 mg capsule (Flomax) 0.4 mg PO QDAY 01/1410/25/24 cephalexin 500 mg capsule 500 mg PO Q6H 10/25/2410/25 ciprofloxacin HCl 500 mg tablet 500 mg PO BID 10/25/24 10/25/24 docusate sodium 100 mg capsule 100 mg PO BID 10/25/24 10/25/24 doxycycline hyclate 100 mg tablet 100 mg PO BID 10/25/24 hydrocodone 10 mg-acetaminophen 1 tab PO Q6H PRN 10/2510/25/24 325 mg tablet linaclotide 290 mcg capsule 290 mcg PO QDAY 10/25/24 0 10/25/24 (Linzess) morphine 30 mg capsule,extended 30 mg PO Q24H 10/25/24 10/25/24 release 24 hr multiphase ondansetron 4 mg disintegrating 4 mg PO Q8H 10/25/24 0 10/25/24 tablet phenazopyridine 200 mg tablet 200 mg PO TID 10/25/24 0 10/25/24 Previous Rx's ?Medication ?Instructions ?Recorded finasteride 5 mg tablet 5 mg PO QDAY #30 tabs Allergies Allergy/AdvReac Type Severity Reaction Status Date / Time No Known Allergies Allergy Verified 10/25/24 13:12 Review of Systems Review of Systems Narrative Review of Systems: GEN: No fever, no chills, no weight loss EYES: No discharge, no visual changes, no pain HEENT: No ear pain, no congestion, no sore throat PULM: No shortness of breath, no cough, no congestion CV: No chest pain, no dyspnea on exertion, no palpitations GI: No nausea, no vomiting, no diarrhea, no pain, no constipation : No frequency, no urgency, no dysuria MUSC/SKEL: No joint pain, no back pain SKIN: No rash PSYCH: No hallucinations, no depression HEME/LYMPH: No easy bleeding or bruising tendencies NEURO: No weakness, no headache Past Medical History Past Medical History NEUROLOGIC: Negative Neurological Disorders, Cerebrovascular Accident, Transient Ischemic Attacks (TIA), Dementia, Alzheimer's Disease, Parkinson's Disease, Brain Tumor, Meningitis, Seizures, Epilepsy, Multiple Sclerosis, Cerebral Palsy, Amyotrophic Lateral Sclerosis (ALS/Esperanza Gehrig's), Guillain-[place] Syndrome, Spina Bifida, Paralysis, Peripheral Neuropathy, Morales's Palsy, Subdural Hematoma, Migraine, Head Trauma or Traumatic Brain Injury CARDIAC: Positive Cardiac Disorders, Myocardial Infarction, Congestive Heart Failure and Hypertension; Negative Atrial Fibrillation, Angina, Coronary Artery Disease, Atherosclerotic Heart Disease, Peripheral Vascular Disease, Hypercholesterolemia, Aneurysm, Valvular Heart Disease, Rheumatic Fever, Pericarditis, Hypotension or Varicose Veins RESPIRATORY: Negative Chronic Obstructive Pulmonary Disease (COPD), Asthma, Bronchitis, Emphysema, Pneumonia, Pulmonary Fibrosis, Cystic Fibrosis, Tuberculosis, Pulmonary Embolism, Pulmonary Edema or Sleep Apnea GASTROINTESTINAL: Negative Gastrointestinal Disorders, Hepatitis, Cirrhosis, Pancreatitis, Celiac Disease, Gastrointestinal Bleed, Esophageal Varices, Lopez's Esophagus, Colitis, Ulcerative Colitis, Diverticulitis, Diverticulosis, Ulcer, Colorectal Cancer, Irritable Bowel, Crohn's Disease, Obstructive Bowel, Hiatal Hernia, Hemorrhoids, Gastroesophageal Reflux Disease or Obesity GENITOURINARY: Positive Genitourinary Disorders and Benign Prostatic Hyperplasia; Negative Renal Disease, Kidney Stones, Polycystic Kidney Disease, Neurogenic Bladder, Inguinal Hernia, Dialysis or Prostate Cancer REPRODUCTIVE: Negative Breast Cancer, Fibroids, Genital Herpes, Gonorrhea, Syphilis or Testicular Cancer MUSCULOSKELETAL: Positive Musculoskeletal Disorders and Gout; Negative Myasthenia Gravis, Marfan's Syndrome, Bone Cancer, Arthritis, Rheumatoid Arthritis, Osteoporosis, Degenerative Disk Disease, Scoliosis, Carpal Tunnel Syndrome, Fibromyalgia, Fractures, Degenerative Joint Disease, Osteomyelitis or Poliovirus ENT: Negative Cataracts, Glaucoma, Blind, Retinal Detachment, Macular Degeneration, Ear Infection, Deafness, Head Trauma or Eye Prosthesis ENDOCRINE: Positive Endocrine Disorders; Negative Diabetes Mellitus Type 1 or Diabetes Mellitus Type 2 HEMATOLOGIC: Negative Blood Disorders, Anemia, Leukemia, Hemophilia, Thalassemia, Sickle Cell Disease or Clotting Problems PSYCHO/SOCIAL: Negative Psychiatric Problems, Schizophrenia, Bipolar Disorder, Depression, Anxiety, Behavior Problems, Self-Mutilation, Attention Deficit Disorder, Attention Deficit Hyperactivity Disorder, Depression or Post Traumatic Stress Disorder OTHER HISTORY: Negative Hospitalization, Autoimmune Disease, Down Syndrome, Developmental Delay, Shingles, Falls, Blood Transfusions, Blood Transfusion Reaction, Anesthesia Reactions, Organ Transplant, Chemotherapy, Radiation Therapy, Hyperbaric Therapy, MRSA, VRSA, Vancomycin-Resistant Enterococci, Human Immunodeficiency Virus (HIV), Chicken Pox, Measles, Mumps, Rubella (Chinese Measles), Pertussis, Clostridium Difficile, Cancer, Breast Cancer, Cervical Cancer, Colorectal Cancer, Lung Cancer, Ovarian Cancer, Prostate Cancer or Testicular Cancer Family History FAMILY HISTORY: Positive Family Cardiac Disorders; Negative Family Psychiatric Problems, Family Respiratory Disorders, Family Gastrointestinal Problems, Family Cancer, Family Surgery or Family Anesthesia Reaction Surgical History SURGICAL: Positive Cardiac Surgery, Cardiac Catheterization, Pacemaker and Angiogram; Negative Endocrine Surgery, Thyroidectomy, Ear Surgery, Tympanostomy Tube, Eye Surgery, Tonsillectomy, Adenoidectomy, Cochlear Implant, Corneal Transplant, Throat Surgery, Abdominal Surgery, Tracheostomy, Gastric Bypass Surgery, Gastrostomy, Bowel Surgery, Nephrectomy, Transurethral Resection, Joint Replacement, Amputation, Open Reduction Internal Fixation, Arthroscopy, Neurologic Surgery, Brain Shunt, Mastectomy, Lumpectomy, Hysterectomy, Tubal Ligation, Section, Vasectomy or Organ Transplant Social History SMOKING STATUS: Never smoker ED Exam Narrative Physical exam: [General: Thin but not emaciated not in any acute distress Head normocephalic HEENT: Within acceptable limits Neck is supple nontender Chest equal chest rise nontender to palpation Respiratory: Clear to auscultation no wheezes crackles or rubs CV: Rate rhythm is regular no murmurs rubs or clicks Abdomen is flat, soft nontender no masses positive bowel sounds all 4 quadrants Back: No CVA tenderness no spinous process tenderness from cervical spine thoracic and lumbar spine Skin: Intact no petechiae rash induration ulceration or crepitus Extremities: Moving all extremity against resistance cap refill less than 2 seconds neurosensory intact Neuro: Awake alert oriented x3 Glascow coma 15 no focal deficits] Course Course Course Narrative: Patient's case, laboratory findings, imaging all discussed with Dr. COOLEY attending who agrees patient can be discharged home. Quality Measures none Orders Category Date Time Status Catheter [Urinary Catheter] QS Care 11/19/24 05:46 Completed Hardin to Leg Bag Routine Care 11/19/24 05:[address] abdomen pelvis wo con Stat Exams 11/19/24 08:02 Completed CBC Stat Lab 11/19/24 08:40 Completed CMP [Comprehensive Metabolic Panel] Stat Lab 11/19/24 08:40 Completed Path Review Blood Smear Stat Lab 11/19/24 08:40 Completed Urinalysis, C/S if Indicated Stat Lab 11/19/24 07:46 Completed Urine Culture Stat Lab 11/19/24 07:46 Received Lidocaine Jelly 2% Urojet [Xylocaine Jelly 2% Urojet] Med 11/19/24 07:33 Discontinued See Dose Instructions TOP X1 ONE oxyCODONE/APAP 5/325 [Percocet 5/325] Med 11/19/24 10:53 Discontinued 1 tab PO X1 ONE Vital Signs Vital signs: Vital Signs Temperature 98.1 F 11/19/24 05:36 Pulse Rate 93 11/19/24 05:36 Respiratory Rate 20 11/19/24 05:36 Blood Pressure 138/81 H 11/19/24 05:36 Pulse Oximetry (%) 96 11/19/24 05:36 Oxygen Delivery Method Room Air 11/19/24 05:36 MDM Patient data External records reviewed:: [facility] previous records Clinical information provided by:: patient Social determinants that could affect healthcare access:: none Patient has the following chronic illnesses:: Cardiac arrest diabetes enlarged prostate How is presenting disease/condition affected by chronic disease/condition?: e xacerbated by Evaluation data The following diagnostics were reviewed and interpreted by me:: lab results and radiology exam(s) Lab and/or radiology exams considered but not ordered:: CBC shows a leukocytosis of 35,100 and H&H of 7.5 and 24.9 respectively with platelets at 61.5 CMP shows a sodium 134 BUN of 21 creatinine 1.1 calcium of 12.0 ALT of less than 7 alk phos of 125. Urine is dark turbid 2+ blood 202 RBCs 35 WBCs. Review of the laboratory results from the past show the leukocytosis is unchanged bladder cancer is known, Interpretation Summary: Hardin catheter was placed successfully patient will be discharged home. Medications Medications considered but not ordered:: None Medication administrations:: Medication Administration History Discontinued Medications Lidocaine HCl (Lidocaine Jelly 2% (Urojet) 10 Ml Tube) 0 ml TOP X1 ONE Stop: 11/19/24 07:34 Last Admin: 11/19/24 07:45 Dose: 10 ml Documented By: GRACIELA Oxycodone/Acetaminophen (Oxycodone/Apap 5/325 Tablet) 1 tab PO X1 ONE Stop: 11/19/24 10:54 Last Admin: 11/19/24 11:12 Dose: 1 tab Documented By: TM None Consultations Consultation(s) initiated? (list below): No Diagnosis Differential Diagnosis ED Complaint MDM: Urinary retention Hardin catheter placement UTI Most likely diagnosis given after review of the tests above:: Hardin catheter placement Admission Indicated Admission indicated?: not indicated Explain why admission is indicated or not indicated:: Stable for outpatient follow-up Admission Request Was there a request for admission?: No Disposition Plan Disposition Plan: Discharge Discharge Attestation Discharge Attestation: The patient and all family members were given an opportunity to ask questions and understood the discharge instructions. Discharge instructions specifically effects, indications for sooner follow up or return to the emergency department, and the expected course of current diagnosis. Patient condition: Stable Medical Decision Making Differential Diagnosis Differential Diagnosis: Urinary retention Hardin catheter placement UTI Lab Data 11/19/24 08:40 11/19/24 08:40 Labs: Lab Results 11/19/24 11/19/24 Range/Units 07:46 08:40 WBC 35.1 H* (3.8-10.6) Thou/mm3 RBC 3.21 L (4.50-5.90) Miln/mm3 Hgb 7.5 L (13.5-16.0) g/dL Hct 24.9 L (41.0-53.0) % MCV 78 L (80-100) fL MCH 23.4 L (25.0-35.0) pg MCHC 30.1 L (31.0-37.0) g/dl RDW Std Deviation 61.5 H (35.1-43.9) fL Plt Count 313 D (140-440) Thou/mm3 Neut % (Auto) 84 H (37-80) % Lymph % (Auto) 8 L (10-50) % [place] % (Auto) 7 (0-12) % Eos % (Auto) 0 (0-10) % Baso % (Auto) 0 (0-2.5) % Neut # (Auto) 29.4 H (1.8-7.7) Thou/mm3 Lymph # (Auto) 2.7 (1.0-4.8) Thou/mm3 [place] # (Auto) 2.5 H (0.0-0.8) Thou/mm3 Eos # (Auto) 0.1 (0.0-0.5) Thou/mm3 Baso # (Auto) 0.1 (0.0-0.2) Thou/mm3 Immature Gran # (Auto) 0.33 H (0.00-0.00) Thou/mm3 Absolute Nucleated RBC 0.00 (0.00-0.00) Thou/mm3 Immature Gran % 1 H (0-0) % Nucleated RBC % 0 (0) /100 WBC Smear Path Review Sent to Pathologist Sodium 134 L (136-145) mMol/L Potassium 3.6 D (3.4-5.1) mMol/L Chloride 99 (98-107) mMol/L Carbon Dioxide 22.2 (20.0-31.0) mMol/L Anion Gap 13 (7-16) BUN 21 (9-23) mg/dL Creatinine 1.1 (0.6-1.3) mg/dL Estim Creat Clear Calc 42.3 L (>60) mL/min eGFR > 60 (60 - ) See Note BUN/Creatinine Ratio 19 (12-20) Ratio Glucose 98 (74-106) mg/dL Calculated Osmolality 271 L (275-295) Calcium 12.0 H D (8.3-10.6) mg/dL Corrected Calcium 12.4 H D (8.5-10.1) mg/dL Total Bilirubin 0.8 (0.3-1.2) mg/dL AST 22 (0-34) U/L ALT < 7 L (10-49) U/L Alkaline Phosphatase 125 H (46-116) U/L Total Protein 6.8 (5.7-8.2) gm/dL Albumin 3.5 (3.4-4.8) gm/dL Globulin 3.3 (2.3-3.5) gm/dL Albumin/Globulin Ratio 1.1 L (1.2-2.2) Ur Collection Type Catheter Urine Color Drk-Yellow A (Lt Yel-Yel) Urine Clarity Turbid A (Clear/Hazy) Urine pH 7.0 (5.0-7.0) Ur Specific [place] 1.015 (1.001-1.035) Urine Protein 1+ A (Neg - Trace) Urine Glucose (UA) Negative (Negative) Urine Ketones Negative (Negative) Urine Blood 2+ A (Negative) Urine Nitrite Negative (Negative) Urine Bilirubin Negative (Negative) Urine Urobilinogen (Auto) Negative (0.0-1.0) mg/dL Ur Leukocyte Esterase Positive (Negative) Urine RBC 202 H (0-3) /hpf Urine WBC 35 H (0-5) /hpf Ur Squamous Epith Cells 0 (0-5) /hpf Urine Bacteria None (None) Hyaline Casts < 1 (0-1) /hpf Ur Culture Indicated? Yes Discharge Plan Plan Patient Disposition: HOME (Self Care) Patient condition on transfer: Stable Prescriptions/Referrals Prescriptions/Med Rec: No Action ciprofloxacin HCl 500 mg tablet 500 mg PO BID hydrocodone-acetaminophen 10-325 mg tablet 1 tab PO Q6H PRN docusate sodium 100 mg capsule 100 mg PO BID phenazopyridine 200 mg tablet 200 mg PO TID morphine 30 mg capsule, ER multiphase 24 hr 30 mg PO Q24H Linzess 290 mcg capsule 290 mcg PO QDAY cephalexin 500 mg capsule 500 mg PO Q6H doxycycline hyclate 100 mg tablet 100 mg PO BID ondansetron 4 mg tablet,disintegrating 4 mg PO Q8H carvedilol [Coreg] 12.5 mg Tablet 12.5 mg PO BID finasteride 5 mg tablet 5 mg PO QDAY Qty: 30 0RF rosuvastatin 20 mg Tablet 20 mg PO QDAY fentanyl 25 mcg/hr Patch 72 Hour 25 mcg TOPICAL Q72H aspirin 325 mg Tablet 325 mg PO QDAY ezetimibe 10 mg Tablet 10 mg PO QDAY Jardiance 25 mg Tablet 25 mg PO QAM Entresto 24-26 mg Tablet 1 tab PO BID tamsulosin [Flomax] 0.4 mg capsule 0.4 mg PO QDAY Referrals: Chata Peraza MD [Primary Care Provider] - In 1 week Problem List Clinical Impression: H/O urinary retention Patient/Caregiver Discharge Instructions Print Language: Greek Stand Alone Forms: [employer]is Award Info., Work/School Release, Patient Portal Info Letter PA/JESSA Supervising Physician JESS/JESSA Supervising Physician: Shae Quevedo ENP
[2024-11-19 08:12] LABS: Culture Indicated,Urine Yes
[2024-11-19 08:48] VITALS: BP 127/77; PULSE 120; RESP 23; TEMP 37.4; O2SAT 95
[2024-11-19 09:02] LABS: Basophils # (Auto) 0.1 Thou/mm3 (0.0-0.2); Basophils % (Auto) 0 % (0-2.5); Eosinophils # (Auto) 0.1 Thou/mm3 (0.0-0.5); Eosinophils % (Auto) 0 % (0-10); Hematocrit 24.9 % (41.0-53.0); Immature Granulocytes % (Auto) 1 % (0-0); Immature Granulocytes Auto 0.33 Thou/mm3 (0.00-0.00); Lymphocytes # (Auto) 2.7 Thou/mm3 (1.0-4.8); Lymphocytes % (Auto) 8 % (10-50); Mean Corpuscular HGB Conc 30.1 g/dl (31.0-37.0); Mean Corpuscular Hemoglobin 23.4 pg (25.0-35.0); Mean Corpuscular Volume 78 fL (80-100); Monocytes # (Auto) 2.5 Thou/mm3 (0.0-0.8); Monocytes % (Auto) 7 % (0-12); Neutrophils # (Auto) 29.4 Thou/mm3 (1.8-7.7); Neutrophils % (Auto) 84 % (37-80); Nucleated Red Blood Cell % 0 /100 WBC (0); Platelet Count 313 Thou/mm3 (140-440); RDW Standard Deviation 61.5 fL (35.1-43.9); Red Blood Count 3.21 Miln/mm3 (4.50-5.90)
[2024-11-19 09:37] LABS: Alanine Aminotransferase < 7 U/L (10-49); Albumin, Serum 3.5 gm/dL (3.4-4.8); Albumin/Globulin Ratio 1.1 (1.2-2.2); Alkaline Phosphatase 125 U/L (46-116); Anion Gap 13 (7-16); Aspartate Amino Transferase 22 U/L (0-34); BUN/Creatinine Ratio 19 Ratio (12-20); Bilirubin,Total 0.8 mg/dL (0.3-1.2); Blood Urea Nitrogen 21 mg/dL (9-23); Calcium (Corrected) 12.4 mg/dL (8.5-10.1); Carbon Dioxide 22.2 mMol/L (20.0-31.0); Chloride 99 mMol/L (98-107); Creatinine (Component) 1.1 mg/dL (0.6-1.3); Estimated Creatinine Clearance 42.3 mL/min (>60); Globulin 3.3 gm/dL (2.3-3.5); Glucose 98 mg/dL (74-106); Osmolality,Calculated 271 (275-295); Potassium 3.6 mMol/L (3.4-5.1); Sodium 134 mMol/L (136-145); Total Protein 6.8 gm/dL (5.7-8.2); eGFR > 60 See Note
[2024-11-19 09:48] LABS: Hemoglobin 7.5 g/dL (13.5-16.0); White Blood Count 35.1 Thou/mm3 (3.8-10.6)
[2024-11-19 10:19] LABS: Path Review Blood Smear Sent to Pathologist
--- NOTE | 2024-11-19 10:31 | PD.EDADDENDU ---
Emergency Room Addendum Addendum Narrative: 1030: Care assumed from Chuck Quevedo. Patient moved to main ED for higher level of care. Past medical, surgical, social and family history reviewed. Vitals and home medications reviewed. I will assume the care of the patient at this time. Please refer to the emergency department record for history and examination from initial visit.? Physical exam by me shows patient under no acute distress at this time.
[2024-11-19] MEDS: oxyCODONE/APAP 5/325 TABLET 1 TAB PO (11:12)
== END 2024-11-19 11:20 | disposition home or self-care (01) ==
PROVIDERS: Registered Nurse General Practice; Emergency Provider Emergency Medicine; PCP Family Medicine
DX: N40.1 Benign prostatic hyperplasia with lower urinary tract symptoms (principal); R33.8 Other retention of urine; I11.0 Hypertensive heart disease with heart failure; I50.9 Heart failure, unspecified; E11.9 Type 2 diabetes mellitus without complications
CPT/HCPCS: 36415; 74176; 80053; 81001; 85025; 87086; 99284; A9270

== ENCOUNTER 2024-11-23 08:09 | Emergency (ER) | payer MEDICARE, MEDICAID, SELFPAY ==
--- NOTE | 2024-11-23 08:03 | PC.CC ---
ASWEmili responded to code blue. Patient was BIBA from home and it was reported that family is on the way. ASW informed security to let SW know when family arrives that way they can be taken to consultation room.
--- NOTE | 2024-11-23 08:08 | PD.EDCPR ---
ED CPR RME/HPI General Chief Complaint: Cardiac Arrest/CPR Stated Complaint: CODE BLUE RME / HPI RME / HPI narrative: 64 year old male presented to the ED BIBA as a CODE BLUE. On arrival to ED, CPR is in progress and per medics given 5 rounds of Epinephrine en route via left tib fib I.O. Medics state patient has remained PEA 50's en route and down for approximately 30 minutes prior to arriving. Medics reported family witnessed the arrest and patient evidently had complained of feeling short of breath prior to collapsing while in the car where he remained for about 10 minutes prior to being pulled out by fire department. No CPR was initiated by family. Patient has history of cancer although further history is unknown on arrival. Per EMR review, patient has history of bladder CA with lung mets undergoing chemotherapy, hx of palliative radiation therapy, s/p TURBT, CAD, hypertension, diabetes. Related Data Home Medications ?Medication ?Instructions ?Recorded ?Confirmed carvedilol 12.5 mg tablet (Coreg) 12.5 mg PO BID 12/04/21 10/25/24 rosuvastatin 20 mg tablet 20 mg PO QDAY 01/11/24 10/25/24 aspirin 325 mg tablet 325 mg PO QDAY 07/28/24 10/25/24 Held on 07/28/24. Instructions: Resume on 07/30/24. resume aspirin on thursday empagliflozin 25 mg tablet 25 mg PO QAM 07/28/24 10/25/24 (Jardiance) ezetimibe 10 mg tablet 10 mg PO QDAY 07/28/24 10/25/24 fentanyl 25 mcg/hr transdermal 25 mcg topical Q72H 07/28/24 10/25/24 patch sacubitril 24 mg-valsartan 26 mg 1 tab PO BID 07/28/24 10/25/24 tablet (Entresto) tamsulosin 0.4 mg capsule (Flomax) 0.4 mg PO QDAY 07/28/24 10/25/24 cephalexin 500 mg capsule 500 mg PO Q6H 10/25/24 10/25/24 ciprofloxacin HCl 500 mg tablet 500 mg PO BID 10/25/24 10/25/24 docusate sodium 100 mg capsule 100 mg PO BID 10/25/24 10/25/24 doxycycline hyclate 100 mg tablet 100 mg PO BID 10/25/24 10/25/24 hydrocodone 10 mg-acetaminophen 1 tab PO Q6H PRN 10/25/24 10/25/24 325 mg tablet linaclotide 290 mcg capsule 290 mcg PO QDAY 10/25/24 10/25/24 (Linzess) morphine 30 mg capsule,extended 30 mg PO Q24H 10/25/24 10/25/24 release 24 hr multiphase ondansetron 4 mg disintegrating 4 mg PO Q8H 10/25/24 10/25/24 tablet phenazopyridine 200 mg tablet 200 mg PO TID 10/25/24 10/25/24 Previous Rx's ?Medication ?Instructions ?Recorded finasteride 5 mg tablet 5 mg PO QDAY #30 tabs 01/19/24 Allergies Allergy/AdvReac Type Severity Reaction Status Date / Time No Known Allergies Allergy Verified 10/25/24 13:12 Review of Systems Review of Systems ROS Unobtainable: other (Unobtainable due to acuity. ) Past Medical History Past Medical History CARDIAC: Positive Cardiac Disorders, Myocardial Infarction, Congestive Heart Failure and Hypertension GENITOURINARY: Positive Genitourinary Disorders and Benign Prostatic Hyperplasia MUSCULOSKELETAL: Positive Musculoskeletal Disorders and Gout ENDOCRINE: Positive Endocrine Disorders Family History FAMILY HISTORY: Positive Family Cardiac Disorders Surgical History SURGICAL: Positive Cardiac Surgery, Cardiac Catheterization, Pacemaker and Angiogram Social History SMOKING STATUS: Never smoker ED Exam Narrative Physical exam: GEN. APPEARANCE: Patient arrived with no signs of life, in cardiac-respiratory arrest with CPR in progress, bagged through i-gel via bag valve mask. VITALS: Unobtainable. HEENT: Normocephalic, atraumatic, no spontaneous eye movements, pupils dilated and fixed, cloudiness looking into the pupil NECK: Supple, no JVD, no mass, no lymphadenopathy. CARDIOVASCULAR: No spontaneous cardiac activity, CPR in progress. ABDOMEN: Soft, not distended. EXTREMITIES: Flaccid. No edema. No signs of trauma. SKIN: Cool and dry, no rashes noted. No signs of trauma. NEURO: GCS is 3. Course Course Course Narrative: 0758: Patient arrived, CPR in progress, bagged via i-Gel BVM at 100%. 0802: Epi given 0802: Pulse check, asystole, CPR resumed 0803: Sodium bicarb given 0805: Epi given 0805: Pulse check, asystole Time of 08:06 AM. 0817: I spoke with patients family in the conference room. Quality Measures none Cardiac Arrest / CPR MDM Narrative MDM Narrative:: 64 year old male with history of bladder CA with lung mets undergoing chemotherapy, hx of palliative radiation therapy, s/p TURBT, CAD, hypertension, diabetes presented to the ED with CPR in progress. Per medics, family were in the car about head to patient's doctor appointment when he began to complain of feeling short of breath prior to collapsing. Per medics report, no CPR was started by family and had remained in the car until fire department arrived ~ 10 minutes later. State when they arrived CPR was in progress by medics. Patient intubated in the field with i-Gel and given 5 rounds of epinephrine prior to arrival. CPR in progress for about 30 minutes prior to ED arrival. Due to the fact the patient was down for 30 minutes without CPR for about 10 minutes, no pulses, no heart rhythm, patient . Time of 08:06 AM. Patient data External records reviewed:: EMS form Clinical information provided by:: EMS and family Social determinants that could affect healthcare access:: none Patient has the following chronic illnesses:: Hx of cancer How is presenting disease/condition affected by chronic disease/condition?: exacerbated by Evaluation data The following diagnostics were reviewed and interpreted by me:: other (specify) (No diagnostics ordered ) Lab and/or radiology exams considered but not ordered:: None Interpretation Summary: N/A Medications / Prescriptions Medications or Prescriptions considered but not ordered:: None Medication administrations:: See above Consultations Consultation(s) initiated? (list below): No Diagnosis Cardiac arrest differential diagnosis: acute massive pulmonary embolism, acute respiratory failure, acute myocardial infarction, cardiac arrest and sudden cardiac Most likely diagnosis given after review of the tests above:: Respiratory failure Cardiopulmonary arrest Admission Indicated Admission indicated?: not indicated Explain why admission is indicated or not indicated:: Patient Admission Request Was there a request for admission?: No Disposition Plan Disposition Plan: other (specify) () Discharge Plan Plan Patient Disposition: Problem List Clinical Impression: Respiratory arrest, Cardiopulmonary arrest Patient/Caregiver Discharge Instructions Print Language: Macedonian
--- NOTE | 2024-11-23 09:16 | PC.NURSE ---
[facility] CALLED [email or web address] WITH 35-45 MINUTE ETA
--- NOTE | 2024-11-23 09:36 | PC.NURSE ---
PLEASE LOOK AT CODE BLUE FORM.
== END 2024-11-23 10:12 | disposition expired ==
PROVIDERS: Emergency Provider Family Medicine; PCP Family Medicine
DX: I46.9 Cardiac arrest, cause unspecified (principal)
CPT/HCPCS: 92950; 99285